=== PATIENT | male | born 1990 | race Caucasian/White ===

== ENCOUNTER 2016-10-12 14:22 | Emergency (ER) | payer SELFPAY ==
[2016-10-12 14:34] VITALS: BP 127/66
--- NOTE | 2016-10-12 14:46 | Emergency Department Report ---
Entered by ANGY NEVAREZ, acting as scribe for BERTA KEANE NP. Chief Complaint: Abdominal Pain Stated Complaint: ABD PAIN Time Seen by Provider: 10/12/16 14:35 - HPI History of Present Illness: 26 y/o male presents with abd pain that started 3 days ago. Sx include n/v but pt denies diarrhea. after eating sushi - ROS Review of Systems: +abd pain +n/v -diarrhea - Exam Vital Signs: Vital Signs 10/12/16 14:31 Temperature 98.5 F Pulse Rate 52 L Respiratory 16 Rate Blood Pressure 127/66 O2 Sat by Pulse 100 Oximetry Physical Exam: Abd: LUQ TTP, soft, no rebound no guarding MSE screening note: Focused history and physical exam performed. Due to findings the following was ordered: labs ED Disposition for MSE Condition: Stable This documentation as recorded by the scribe,ANGY NEVAREZ,accurately reflects the service I personally performed and the decisions made by ,BERTA KEANE , LUMBER TALLIER.
[2016-10-12 15:16] LABS: Basophils % (Auto) 0.4 % (0.0-1.8); Eosinophils % (Auto) 3.6 % (0.0-4.3); Hematocrit 43.5 % (35.5-45.6); Hemoglobin 14.2 gm/dl (11.8-15.2); Mean Corpuscular HGB Conc 33 % (32-34); Mean Corpuscular Hemoglobin 28 pg (28-32); Mean Corpuscular Volume 86 fl (84-94); Platelet Count 164 K/mm3 (140-440); Red Blood Count 5.05 M/mm3 (3.65-5.03); Red Cell Distribution Width 13.8 % (13.2-15.2); White Blood Count 7.4 K/mm3 (4.5-11.0)
[2016-10-12 15:29] LABS: Alanine Aminotransferase 17 units/L (7-56); Albumin 4.3 g/dL (3.9-5); Alkaline Phosphatase 55 units/L (35-129); Anion Gap 16 mmol/L; BUN/Creatinine Ratio 13.75; Blood Urea Nitrogen 11 mg/dL (9-20); Calcium 8.8 mg/dL (8.4-10.2); Carbon Dioxide 26 mmol/L (22-30); Chloride 101.6 mmol/L (98-107); Glucose 89 mg/dL (75-100); Lipase 28 units/L (13-60); Potassium 4.3 mmol/L (3.6-5.0); Sodium 139 mmol/L (137-145); Total Protein 6.5 g/dL (6.3-8.2)
== END 2016-10-12 22:15 | disposition left against medical advice (07) ==
LOC: ED 14:22
DX: R10.12 Left upper quadrant pain (principal); R11.2 Nausea with vomiting, unspecified; R19.7 Diarrhea, unspecified; Z53.21 Procedure and treatment not carried out due to patient leaving prior to being seen by health care provider
CPT/HCPCS: 36415; 80053; 83690; 85025

== ENCOUNTER 2020-02-03 15:03 | Emergency (ER) | payer SELFPAY ==
[2020-02-03 15:28] VITALS: BP 151/95
--- NOTE | 2020-02-03 15:44 | Emergency Department Report ---
Chief Complaint: Dental/Oral Stated Complaint: TOOTHACHE/JAW Time Seen by Provider: 02/03/20 15:41 - HPI History of Present Illness: Patient is a 29-year-old male presents emergency room with complaints of right upper dental pain that began 2 weeks ago. He states that he last saw a dentist a year ago. He states that he needs to have a tooth pulled but did not follow back up. He denies any fever, vomiting, chills, facial swelling, difficulty swallowing, difficulty breathing. He is tolerating p.o. intake. He denies any past medical history. No allergies to medications. Vitals are stable On exam: Non toxic appearing, no acute distress atraumatic, normocephalic normal appearance of the eyes, EOMI, no periorbital edema or ecchymosis moist mucus membranes, normal posterior oropharynx, there is a small hole with dental caries present to the right upper back molar, there is a dental carry present to the left lower back molar, no edema or induration of the gumline, no facial edema, no signs of fluctuance, no signs of necrosis, no irritation of the gumline, uvula is midline, no uvular edema or deviation, no trismus, no tongue elevation, no submandibular swelling, no muffled voice regular heart rate and rhythm, no gallops, no rubs, no murmurs breath sounds are clear bilaterally, no w/r/r A&O x4, no focal neuro deficit skin is warm, dry, intact No signs of dental abscess, infected dental caries, gingivitis, Ludwigs Discussed supportive care and symptomatic treatment with patient Patient given multiple dental resources Discussed strict return precautions Medical screen examination performed and there is no threat to life or limb at this time - Exam Vital Signs: Vital Signs 02/03/20 15:26 Temperature 98.2 F Pulse Rate 63 Respiratory 16 Rate Blood Pressure 151/95 O2 Sat by Pulse 100 Oximetry MSE screening note: Focused history and physical exam performed. Due to findings the following was ordered: ED Disposition for MSE Clinical Impression: Dental caries, Cracked tooth Disposition: - MED SCREENING EXAM-LEFT Is pt being admited?: No Does the pt Need Aspirin: No Condition: Stable Additional Instructions: May alternate Tylenol and then ibuprofen every 6-8 hours as needed for discomfort. May gargle with warm salt water 3 times a day. May use Orajel [id number]. May use a dental putty [id number] but do not swallow. Follow-up with a dentist. it is very important you follow-up. Return to emergency room for any new or worsening symptoms. Referrals: [facility] [Outside] - 2-3 Days [facility] [Outside] - 2-3 Days Time of Disposition: 15:43 Print Language: KITTITIAN
== END 2020-02-03 16:00 | disposition left against medical advice (07) ==
LOC: ED 15:03
DX: K08.89 Other specified disorders of teeth and supporting structures (principal); Z53.21 Procedure and treatment not carried out due to patient leaving prior to being seen by health care provider